=== PATIENT | male | born 1995 | race African-American/Black ===

== ENCOUNTER 2016-10-10 18:20 | Inpatient (IN) | payer OTHER, SELFPAY ==
[~2016-10-10] VITALS: Ht 177.8 cm; Wt 66.7 kg
[2016-10-10 19:03] LABS: MEAN CORPUSCULAR HEMOGLOBIN 31.3 pg (27.0-33.0); MEAN CORPUSCULAR HGB CONC 34.3 g/dl (32.0-36.5); MEAN CORPUSCULAR VOLUME 91.2 fl (80.0-96.0); WHITE BLOOD COUNT 6.9 K/mm3 (4.0-10.0)
[2016-10-10 19:18] LABS: CONTROL LINE INT CTR LINE PRESENT; METHADONE URINE NEGATIVE (NEGATIVE); TRICYCLIC ANTIDEPRESS URINE NEGATIVE (NEGATIVE)
[2016-10-10 19:27] LABS: ALBUMIN/GLOBULIN RATIO 1.11 (1.00-1.93); ALKALINE PHOSPHATASE 108 U/L (45-117); ALT/SGPT 22 U/L (12-78); ANION GAP 7 MEQ/L (8-16); AST/SGOT 11 U/L (15-37); BILIRUBIN,DIRECT 0.1 MG/DL (0.0-0.2); BILIRUBIN,TOTAL 0.4 MG/DL (0.2-1.0); BLOOD UREA NITROGEN 16 MG/DL (7-18); CARBON DIOXIDE LEVEL 28 MEQ/L (21-32); CHLORIDE LEVEL 105 MEQ/L (98-107); CREATININE FOR GFR 0.82 MG/DL (0.70-1.30); GLOMERULAR FILTRATION RATE > 60.0 (>60); GLUCOSE, FASTING 79 MG/DL (70-105); POTASSIUM SERUM 4.1 MEQ/L (3.5-5.1); SODIUM LEVEL 140 MEQ/L (136-145); TOTAL PROTEIN 7.6 GM/DL (6.4-8.2)
[2016-10-11] MEDS ORDERED: PROMSYP5 PO (13:08)
[2016-10-11] MEDS ORDERED: ALBU17IN INH (13:08)
--- NOTE | 2016-10-11 17:42 | EDDOCDS ---
Nurse's Notes [facility] Name: Sebastian Lee Age: 21 yrs Sex: Male : 1995 Arrival Date: 10/10/2016 Time: 18:20 Bed OBSERVATION Private MD: Diagnosis: Major depressive disorder, recurrent, moderate Presentation: 10/10 18:23 Presenting complaint: Patient states: pt was in the library at [facility] and made a comment mk4 about being depressed and killing himself, pt has been chaptered out of the and his recently left him , states he was going to drink alcohol and overdose, has many financial troubles , smells of alcohol today. Adult Sepsis Screening: The patient does not have new or worsening altered mentation. Patient's respiratory rate is less than 22. Systolic blood pressure is greater than 100. Patient has a qSOFA score of 0- Negative Sepsis Screen. Suicide/Homicide risk assessment- The patient admits to and/or has been reported to be having suicidal ideations. Patient denies SI and HI but presents with another emotional, behavioral or other mental health complaint. The patient reports that he/she has not been admitted to an inpatient mental health facility in the last 30 days. The patient reports that he/she has a recent or current history of substance abuse. The patient reports that he/she has no prior history of suicide attempt and/or organized plan. The patient reports that he/she has not experienced a significant life altering event in the last 30 days. The patient reports that he/she lacks adequate social support. The patient reports he/she has no significant chronic medical condition(s). Status: Patient is not a seed service advisor or dependent. Transition of care: patient was not received from another setting of care. 18:23 Acuity: COCO Level 3 4 18:23 Method Of Arrival: Police Car mk4 Triage Assessment: 18:26 General: Appears in no apparent distress. Pain: Denies pain. HIV screening NA for this mk4 visit Offered previously. Historical: - Allergies: no known allergies; - Home Meds: 1. promethazine-DM 6.25-15 mg/5 mL Oral syrp 5 mL as needed 2. albuterol sulfate 90 mcg/actuation inhalation HFAA 2 puffs as needed - PMHx: Asthma; - PSHx: none; - Social history: Smoking status: Patient uses tobacco products, light tobacco smoker. No barriers to communication noted, The patient speaks fluent Thai. - Family history: Not pertinent. - : The pt / caregiver states he / she is not on anticoagulants. Home medication list is obtained from the patient. - Exposure Risk Screening:: None identified. Screenin/28 17:36 Screening information is obtained from the patient. Fall risk: No risks identified. kcs Assistance ADL's: requires no assistance with activities of daily living. Abuse/DV Screen: The patient / caregiver reports he/she is: not in a situation that causes fear, pain or injury. Nutritional screening: No deficits noted. Advance Directives: Currently, there is no health care proxy. There is no living will. home support is adequate. Assessment: 10/10 18:29 General: Appears in no apparent distress, comfortable, Behavior is cooperative, Smells mk4 of alcohol. Respiratory: Airway is patent Respiratory effort is even, unlabored, Respiratory pattern is regular. 19:20 Reassessment: Patient appears in no apparent distress at this time. awake resting rw1 quietly on stretcher, safety maintained will monitor.. 20:23 General: Appears in no apparent distress, comfortable, Behavior is appropriate for age, rw1 cooperative, pleasant. Pain: Denies pain. Neurological: Level of Consciousness is awake, alert, obeys commands, Oriented to person, place, time. Respiratory: Airway is patent Respiratory effort is even, unlabored. Derm: Skin is normal. 21:20 Reassessment: Patient appears in no apparent distress at this time. awake resting rw1 quietly on stretcher, safety maintained will monitor.. 22:00 General: Appears in no apparent distress, comfortable. Neurological: Level of ko2 Consciousness is awake, alert. Respiratory: Airway is patent Respiratory effort is even, unlabored, Respiratory pattern is regular. Derm: Skin is normal. 22:26 Reassessment: Patient appears in no apparent distress at this time. awake resting rw1 quietly on stretcher, safety maintained will monitor.. 23:28 General: Appears in no apparent distress, comfortable, Behavior is resting quietly on rw1 stretcher, safety maintained. Respiratory: Airway is patent Respiratory effort is even, unlabored. Derm: Skin is normal. 10/11 00:20 Reassessment: Patient appears in no apparent distress at this time. resting quietly on rw1 stretcher, safety maintained will monitor.. 01:16 Reassessment: Patient appears in no apparent distress at this time. resting quietly on rw1 stretcher, safety maintained will monitor.. 01:49 General: Appears in no apparent distress, comfortable, Behavior is appropriate for age, ko2 cooperative. Pain: Denies pain. Neurological: Level of Consciousness is awake, alert. Cardiovascular: Heart tones present. Respiratory: Airway is patent Respiratory effort is even, unlabored, Respiratory pattern is regular, symmetrical, Breath sounds are clear bilaterally. GI: Abdomen is non- distended Bowel sounds present X 4 quads. Derm: Skin is normal. 02:19 Reassessment: Patient appears in no apparent distress at this time. resting quietly on rw1 stretcher, safety maintained. 03:15 Reassessment: Patient appears in no apparent distress at this time. resting quietly on rw1 stretcher, safety maintained. 04:33 General: Appears in no apparent distress, comfortable, Behavior is resting quietly on rw1 stretcher, safety maintained. Respiratory: Airway is patent Respiratory effort is even, unlabored. Derm: Skin is normal. 05:26 General: Appears in no apparent distress, comfortable, Behavior is appropriate for age, rw1 cooperative, quiet. Pain: Denies pain. Neurological: Level of Consciousness is awake, obeys commands, Oriented to person, place, time. Respiratory: Airway is patent Respiratory effort is even, unlabored. Derm: Skin is normal. 05:31 General: Appears in no apparent distress, comfortable, Behavior is quiet. Neurological: ko2 Respiratory: Airway is patent Respiratory effort is even, unlabored. Derm: Skin is normal. 06:14 Reassessment: Patient appears in no apparent distress at this time. for further rw1 documentation see [employer]. 10:11 Reassessment: patient resting on stretcher. Roused easily when I entered the room - kcs denies any needs. Has not eaten breakfast yet but states he will. Security observing.. 11:15 Reassessment: Patient has been sleeping - roused easily to voice - denies any needs. allan Wanted to talk with PSA and spoke with Madalyn Hoffman. Still has not eaten breakfast and now does not want to. Security observing.. 11:19 Reassessment: Patient to and from bathroom to void. Has been talking on phone.. kcs 13:11 Reassessment: Patient eating lunch. Has been sitting by the door (closed) reading kcs magazines but declines to have the lights turned on. Security observing.. 14:37 Reassessment: Patient resting on stretcher - lunch finished. Security observing.. kcs 16:33 Reassessment: Patient has been resting on and off - remains pleasant and cooperative. kcs Security observing.. 17:36 Reassessment: patient has remained sitting in chair - states he can't sleep anymore kcs today. Denies any needs. . General: Appears comfortable, well developed, well nourished, well groomed, Behavior is cooperative, pleasant. Pain: Denies pain. Neurological: Level of Consciousness is awake, alert. Respiratory: Airway is patent Respiratory effort is even, unlabored, Respiratory pattern is regular, symmetrical. Derm: Skin is intact, is healthy with good turgor, Skin is dry, Skin is normal. Mental Health Eval: 10/10 19:52 Mental health consult is initiated at 19:35. Status: The patient is not a ms seed service advisor or dependent. [facility] Behavioral Health: The patient is not an established patient of [facility] Behavioral Health. 19:54 Referral Information: Evaluation referral is generated by a police agency: ms 19:56 Referral Information: The patient was referred for evaluation because Pt. was a legal ms pick-up letter issued by [facility] therapist, Mirta Gonzalez. Pt. has stated he has been depressed and having SI.. 20:04 Subjective: The patients chief complaint is Pt. reports he has been feeling depressed ms and has had thoughts of killing himself. He reports that today he had thoughts of going home and taking an overdose. Pt. states he was d/c from [facility] on 06/06/2016 due to a drug charge. He also reports that his left him on Aug 14 and moved back to [place]. He does reports they are trying to work things out but the relationship is still stressed. Pt. also reports financial difficulties as a big stressor .He states he is currently attending [facility] and states his grades are starting to suffer. Pt. reports in March of last year, after an argument with his , he drank and took overdose of pills. He reports he was seen at clinic at [facility] the next day but they were unaware that he had taken intentional overdose.. Delusions are denied. Patient's mood is depressed, Hallucinations are denied. 20:53 Mental Health history: no relevant mental health problems or treatments. Mental Health ms Admissions: None. Current Outpatient Mental Health Services: None. Current living environment is The patient currently lives alone. 20:54 Patient presents to Emergency Department with the following symptoms within the past 2 ms weeks: depressed mood, marital problem, sleep disturbance - insomnia, suicidal ideation with plan for pills. Substance abuse: Patient uses marijuana one joint weekly Patient uses tobacco. Mental status exam: Patients appearance is appropriate, Patient's behavior is cooperative, Speech is normal. Affect is appropriate. Mood is depressed. Hallucinations are denied. Appetite is normal. Memory is good. Energy level is normal. Content of thought is normal. Thought process is intact. Cognitive level is oriented to person, place, time and situation Patient's insight is good. Judgement is fair. Rapport with interviewer is good. Suicidal Ideation present with a plan to kill self by pills. Homicidal ideation is denied. Disposition: Medically cleared for disposition by Scooby Rodrigues DO Psychiatric Consult is performed by phone with Dr Ed Boyd MD. [facility] Admission Criteria: The patient is experiencing suicidal ideation. The patient requires continuous observation and/or control to protect self, others or property. Legal Status: Patient's legal status will be [facility] Services admission: . [place] Safe [place]: [place] Safe Act is applicable to this patient. The patient poses a risk to self or other and the Nursing Back Roll Lathe Operator has been notified. He/She will enter the patient's data. DSM-V Differential Diagnosis: Unspecified Depressive Disorder (F32.9). Narrative:. Awaiting: referral hospital acceptance. 21:45 Narrative: No available beds currently at this facility or surrounding facilities. Bed ms search to continue in a.m. 10/11 07:26 Legal Status: Patient's legal status will be Emergency admission: 939. rb 16:31 Narrative: Pt legals placed with his belongings. rb 16:50 Awaiting: transfer to [facility]. rb Vital Signs: 10/10 18:26 BP 154 / 93; Pulse 74; Resp 18; Temp 97.2(O); Pulse Ox 96% on R/A; Weight 68.04 kg; mk4 Height 5 ft. 9 in. (175.26 cm); 20:23 BP 144 / 77; Pulse 70; Resp 16; Temp 97.9(TE); Pulse Ox 96% on R/A; Pain 0/10; rw1 10/11 05:26 BP 121 / 66; Pulse 65; Resp 18; Temp 96.8(T); Pulse Ox 96% on R/A; Pain 0/10; rw1 16:36 BP 129 / 67; Pulse 70; Resp 18; Temp 97.2(O); Pulse Ox 100% on R/A; dpm 17:36 BP 147 / 72; Pulse 62; Resp 20; Temp 98.2; Pulse Ox 99% on R/A; Pain 0/10; kcs 10/10 18:26 Body Mass Index 22.15 (68.04 kg, 175.26 cm) 4 Vitals: 10/10 18:26 Log In time N/A- police car arrival. 4 ED Course: 18:23 Patient visited by Nancy Christianson. gjb 18:23 Patient moved to Waiting gjb 18:23 Patient moved to 30 mk4 18:23 Patient moved to Waiting gjb 18:24 Patient visited by Ben Briones. rn1 18:24 Patient moved to 30 rn1 18:25 Triage Initiated mk4 18:34 Patient moved to [facility] mk4 18:35 Patient visited by Akash Nagy. dpm 18:37 Pt greeted and oriented to ED. Patient advised of names of staff involved in care, dpm location of call mancini, wait times and NPO status. Patient has correct armband on for positive identification. Placed in gown. Placed in psych safe attire. Security observing. Property removed, inventory done, secured in belongings bag- placed in locked locker. Placed in locker 2. Psych Safety Check: Location: Psych Room. Visual Assessment: Cooperative. 18:53 Patient visited by Akash Nagy. dpm 18:55 Drug Eval Toxicology ED Only Sent. mk4 18:58 Scooby Rodrigues DO is Attending Physician. cs11 18:58 Patient visited by Scooby Rodrigues DO. cs11 19:03 Patient visited by Tre Green. tr 19:03 Patient moved to OBSERVATION cs11 19:14 Patient visited by Tre Green. tr 19:18 Ben Trujillo LPN is Primary Nurse. rw1 19:29 Patient visited by Tre Green. tr 19:34 Patient visited by Tre Green. tr 20:01 Patient visited by Tre Green. tr 20:18 Patient visited by Tre Green. tr 20:32 Patient visited by Tre Green. tr 20:46 Patient visited by Tre Green. tr 21:00 Patient visited by Tre Green. tr 21:14 Patient visited by Tre Green. tr 21:26 Patient name changed from Christopher\S\\S\Lee\S\ to Christopher\S\ \S\Lee. EDMS 21:30 Patient visited by Tre Green. tr 21:32 [place] [place] Agreement was scanned into [employer] and attached to record. zo 22:00 Patient visited by Tre Green. tr 22:28 Patient visited by Tre Green. tr 22:45 Patient visited by Tre Green. tr 23:01 Patient visited by Tre Green. tr 23:17 Patient visited by Tre Green. tr 23:30 Patient visited by Tre Green. tr 23:44 Patient visited by Tre Green. tr 10/11 00:00 Patient visited by Tre Green. tr 00:18 Patient visited by Tre Green. tr 00:48 Patient visited by Tre Green. tr 01:15 Patient visited by Ben Trujillo LPN. rw1 01:30 Patient visited by Tre Green. tr 01:49 Patient visited by Tre Green. tr 01:50 Patient visited by Brooke Solomon RN. ko2 02:04 Patient visited by Tre Green. tr 02:18 Patient visited by Tre Green. tr 02:29 Patient visited by Tre Green. tr 02:44 Patient visited by Tre Green. tr 03:01 Patient visited by Tre Green. tr 03:17 Patient visited by Tre Green. tr 03:30 Patient visited by Tre Green. tr 03:47 Patient visited by Tre Green. tr 03:59 Patient visited by Tre Green. tr 04:14 Patient visited by Tre Green. tr 04:30 Patient visited by Tre Green. tr 04:44 Patient visited by Green Tre. tr 05:01 Patient visited by [facility] Tre. tr 05:14 Patient visited by [facility] Tre. tr 05:43 Patient visited by [facility] Tre. tr 05:59 Patient visited by [facility] Tre. tr 06:02 Patient visited by [facility] Tre. tr 06:17 Patient visited by [facility] Tre. tr 06:30 Patient visited by Green Tre. tr 06:44 Patient visited by Green Tre. tr 06:46 Patient visited by [facility] Tre. tr 06:50 Attending Physician role handed off by Scooby Rodrigues DO sd1 06:50 Angeles Metzger MD is Attending Physician. sd1 07:04 Patient visited by Akash Nagy. dpm 07:15 Patient visited by Akash Nagy. dpm 07:28 Patient visited by Akash Nagy. dpm 08:03 Patient visited by Akash Nagy. dpm 08:38 Patient visited by Akash Nagy. dpm 08:45 Patient visited by Akash Nagy. dpm 09:02 Patient visited by Akash Nagy. dpm 09:32 Patient visited by Akash Nagy. dpm 09:53 Patient visited by Akash Nagy. dpm 10:05 Patient visited by Akash Nagy. dpm 10:22 Patient visited by Akash Nagy. dpm 10:33 Patient visited by Akash Nagy. dpm 10:54 Patient visited by Akash Nagy. dpm 11:10 Patient visited by Akash Nagy. dpm 11:41 Patient visited by Akash Nagy. dpm 12:10 Ed Boyd MD is Hospitalizing Provider. sd1 12:15 Patient visited by Akash Nagy. dpm 12:31 Patient visited by Akash Nagy. dpm 12:56 Patient visited by Akash Nagy. dpm 13:12 Patient visited by Akash Nagy. dpm 14:08 Patient visited by Akash Nagy. dpm 14:22 Patient visited by Akash Nagy. dpm 14:29 Patient visited by Akash Nagy. dpm 15:16 Patient visited by Akash Nagy. dpm 15:25 Patient visited by Akash Nagy. dpm 15:54 Patient visited by Akash Nagy. dpm 16:32 Patient visited by Akash Nagy. dpm 16:50 [facility] Legal paperwork was scanned into [employer] and attached to record. jl 16:55 Patient visited by Akash Nagy. dpm 17:33 Patient visited by Akash Nagy. dpm 17:36 The patient / caregiver is instructed regarding the plan of care and ED course. kcs 17:36 No IV's were initiated during this patient's visit. No procedures done that require kcs assistance. Attachments: 10/11 16:50 [facility] Legal paperwork jl Order Results: Lab Order: Acetaminophen Level; SPEC'M 10/10/16 18:43 Test: ACETAMINOPHEN LEVEL; Value: < 2.0; Range: 10.0-30.0; Abnormal: Below low normal; Units: UG/ML; Status: F Lab Order: Basic Metabolic Profile; SPEC'M 10/10/16 18:43 Test: GLUCOSE, FASTING; Value: 79; Range: 70-105; Units: MG/DL; Status: F Test: BLOOD UREA NITROGEN; Value: 16; Range: 7-18; Units: MG/DL; Status: F Test: CREATININE FOR GFR; Value: 0.82; Range: 0.70-1.30; Units: MG/DL; Status: F Test: GLOMERULAR FILTRATION RATE; Value: > 60.0; Range: >60; Status: F Test: SODIUM LEVEL; Value: 140; Range: 136-145; Units: MEQ/L; Status: F Test: POTASSIUM SERUM; Value: 4.1; Range: 3.5-5.1; Units: MEQ/L; Status: F Test: CHLORIDE LEVEL; Value: 105; Range: 98-107; Units: MEQ/L; Status: F Test: CARBON DIOXIDE LEVEL; Value: 28; Range: 21-32; Units: MEQ/L; Status: F Test: ANION GAP; Value: 7; Range: 8-16; Abnormal: Below low normal; Units: MEQ/L; Status: F Test: CALCIUM LEVEL; Value: 9.0; Range: 8.5-10.1; Units: MG/DL; Status: F Test Note: ; Units are mL/min/1.73 m2 Chronic Kidney Disease Staging per NKF: Stage I & II GFR >=60 Normal to Mildly Decreased Stage III GFR 30-59 Moderately Decreased Stage IV GFR 15-29 Severely Decreased Stage V GFR <15 Very Little GFR Left ESRD GFR <15 on INTERVENTIONAL CARDIOLOGIST Lab Order: Complete Blood Count; SPEC'M 10/10/16 18:43 Test: WHITE BLOOD COUNT; Value: 6.9; Range: 4.0-10.0; Units: K/mm3; Status: F Test: RED BLOOD COUNT; Value: 4.75; Range: 4.30-6.10; Units: M/mm3; Status: F Test: HEMOGLOBIN; Value: 14.8; Range: 14.0-18.0; Units: g/dl; Status: F Test: HEMATOCRIT; Value: 43.3; Range: 42.0-52.0; Units: %; Status: F Test: MEAN CORPUSCULAR VOLUME; Value: 91.2; Range: 80.0-96.0; Units: fl; Status: F Test: MEAN CORPUSCULAR HEMOGLOBIN; Value: 31.3; Range: 27.0-33.0; Units: pg; Status: F Test: MEAN CORPUSCULAR HGB CONC; Value: 34.3; Range: 32.0-36.5; Units: g/dl; Status: F Test: RED CELL DISTRIBUTION WIDTH; Value: 12.0; Range: 11.5-14.5; Units: %; Status: F Test: PLATELET COUNT, AUTOMATED; Value: 205; Range: 150-450; Units: k/mm3; Status: F Lab Order: Drug Eval Toxicology ED Only; SPEC'M 10/10/16 18:49 Test: AMPHETAMINES LEVEL URINE; Value: NEGATIVE; Range: NEGATIVE; Status: F Test: BARBITURATES URINE; Value: NEGATIVE; Range: NEGATIVE; Status: F Test: BENZODIAZEPINES URINE; Value: NEGATIVE; Range: NEGATIVE; Status: F Test: CANNABINOIDS URINE; Value: POSITIVE; Range: NEGATIVE; Abnormal: Above high normal; Status: F Test: COCAINE METABOLITE URINE; Value: NEGATIVE; Range: NEGATIVE; Status: F Test: METHADONE URINE; Value: NEGATIVE; Range: NEGATIVE; Status: F Test: OPIATES URINE; Value: NEGATIVE; Range: NEGATIVE; Status: F Test: TRICYCLIC ANTIDEPRESS URINE; Value: NEGATIVE; Range: NEGATIVE; Status: F Test Note: ; FALSE POSITIVE RESULTS CAN BE CAUSED BY THE USE OF PANTOPRAZOLE (PROTONIX). Lab Order: Ethyl Alcohol (ethanol); SPEC'M 10/10/16 18:43 Test: ETHYL ALCOHOL (ETHANOL); Value: < 0.003; Range: 0.000-0.010; Units: %; Status: F Lab Order: Liver Profile; SPEC'M 10/10/16 18:43 Test: AST/SGOT; Value: 11; Range: 15-37; Abnormal: Below low normal; Units: U/L; Status: F Test: ALT/SGPT; Value: 22; Range: 12-78; Units: U/L; Status: F Test: ALKALINE PHOSPHATASE; Value: 108; Range: 45-117; Units: U/L; Status: F Test: BILIRUBIN,TOTAL; Value: 0.4; Range: 0.2-1.0; Units: MG/DL; Status: F Test: BILIRUBIN,DIRECT; Value: 0.1; Range: 0.0-0.2; Units: MG/DL; Status: F Test: TOTAL PROTEIN; Value: 7.6; Range: 6.4-8.2; Units: GM/DL; Status: F Test: ALBUMIN; Value: 4.0; Range: 3.2-5.2; Units: GM/DL; Status: F Test: ALBUMIN/GLOBULIN RATIO; Value: 1.11; Range: 1.00-1.93; Status: F Lab Order: Salicylate Level; SPEC'M 10/10/16 18:43 Test: SALICYLATE LEVEL; Value: 4.0; Range: 5.0-30.0; Abnormal: Below low normal; Units: MG/DL; Status: F Lab Order: Thyroid Stimulating Hormone; SPEC'M 10/10/16 18:43 Test: THYROID STIMULATING HORMONE; Value: 0.259; Range: 0.358-3.740; Abnormal: Below low normal; Units: uIU/ML; Status: F Outcome: 12:10 Decision to Hospitalize by Provider. sd1 17:36 Discharge Assessment: Patient awake, alert and oriented x 3. No cognitive and/or kcs functional deficits noted. Patient verbalized understanding of disposition instructions. Patient awake and alert. patient administered narcotics - no. The following High Risk Discharge criteria are identified: Yes, patient has been evaluated by PSA.. Admitted to Psych accompanied by tech, via wheelchair, with chart. Condition: stable. No special radiology studies were completed. Property :Personal belongings accompany Pt. 17:40 Patient left the ED. kcs Signatures: Dispatcher [employer] EDMS Angeles Metzger MD MD sd1 Jody Reeves, RN RN allan Hoffman, Madalyn, PSA PSA rb Genaro Mendoza, PSA PSA Maria Elena Busch, PSA PSA ms Norma, Ben Jones,SPORTS PSYCHOLOGIST SPORTS PSYCHOLOGIST rw1 Roshan Duenas Dustin dpScooby Ken, DO cs11 Yazmin Harrison RN RN [id number] Brooke Solomon RN RN lew2 Ben Briones rn1 Nancy Christianson Corrections: (The following items were deleted from the chart) 10/10 20:54 20:53 Mental Health history: ms ms 10/11 11:20 11:19 Reassessment: Patient to and from bathroom to void.. kcs kcs MTDD
--- NOTE | 2016-10-11 17:42 | EDDOCDS ---
Physician Documentation [facility] Name: Sebastian Lee Age: 21 yrs Sex: Male : 1995 Arrival Date: 10/10/2016 Time: 18:20 Bed OBSERVATION Private MD: Disposition: 10/11 06:50 Due to EMR change management lead to [employer], the medical record for this patient will completed sd1 in [facility]. Disposition: 10/11/16 12:10 Hospitalization ordered by Ed Boyd for Inpatient Admission. Preliminary diagnosis is Major depressive disorder, recurrent, moderate. - Bed requested for Admit. - Status is Inpatient Admission. kcs - Condition is Stable. - Problem is new. - Symptoms are unchanged. Historical: - Allergies: no known allergies; - Home Meds: 1. promethazine-DM 6.25-15 mg/5 mL Oral syrp 5 mL as needed 2. albuterol sulfate 90 mcg/actuation inhalation HFAA 2 puffs as needed - PMHx: Asthma; - PSHx: none; - Social history: Smoking status: Patient uses tobacco products, light tobacco smoker. No barriers to communication noted, The patient speaks fluent [place]. - Family history: Not pertinent. - : The pt / caregiver states he / she is not on anticoagulants. Home medication list is obtained from the patient. - Exposure Risk Screening:: None identified. Vital Signs: 10/10 18:26 BP 154 / 93; Pulse 74; Resp 18; Temp 97.2(O); Pulse Ox 96% on R/A; Weight 68.04 kg / mk4 150 lbs; Height 5 ft. 9 in. (175.26 cm); 20:23 BP 144 / 77; Pulse 70; Resp 16; Temp 97.9(TE); Pulse Ox 96% on R/A; Pain 0/10; rw1 10/11 05:26 BP 121 / 66; Pulse 65; Resp 18; Temp 96.8(T); Pulse Ox 96% on R/A; Pain 0/10; rw1 16:36 BP 129 / 67; Pulse 70; Resp 18; Temp 97.2(O); Pulse Ox 100% on R/A; dpm 17:36 BP 147 / 72; Pulse 62; Resp 20; Temp 98.2; Pulse Ox 99% on R/A; Pain 0/10; kcs 10/10 18:26 Body Mass Index 22.15 (68.04 kg, 175.26 cm) mk4 MDM: 10/10 18:39 Consult PFS/PSA/Sheet [place] Taper Helper ordered. br1 18:39 Consult PFS/PSA/Sheet [place] Taper Helper: Patient's case requires discussion with on-call br1 Psychiatrist ordered. 18:39 PSA/PFS to call Nursing Office Services Specialist, to enter patient data on [place] Safe [place] if patient br1 involuntarily admitted or transferred for SI or HI ordered. 18:39 Confirm accurate psychiatric medication list and times of last dosage ordered. br1 18:39 Detain Pt Until Medically/PFS Cleared ordered. br1 18:40 Acetaminophen Level Ordered. EDMS 18:40 Basic Metabolic Profile Ordered. EDMS 18:40 Complete Blood Count Ordered. EDMS 18:40 Drug Eval Toxicology ED Only Ordered. EDMS 18:40 Ethyl Alcohol (ethanol) Ordered. EDMS 18:40 Liver Profile Ordered. EDMS 18:40 Salicylate Level Ordered. EDMS 18:40 Thyroid Stimulating Hormone Ordered. EDMS 18:40 Consult PFS/PSA/[place] Taper Helper complete. mk4 18:55 Consult PFS/PSA/[place] Taper Helper: Patient's case requires discussion with on-call 4 Psychiatrist complete. 18:55 PSA/PFS to call Nursing Office Services Specialist, to enter patient data [place] Safe [place] if patient mk4 involuntarily admitted or transferred for SI or HI complete. 19:17 Financial registration complete. zo 19:41 Acetaminophen Level Reviewed. cs11 19:41 Basic Metabolic Profile Reviewed. cs11 19:41 Drug Eval Toxicology ED Only Reviewed. cs11 19:41 Liver Profile Reviewed. cs11 19:41 Salicylate Level Reviewed. cs11 19:41 Thyroid Stimulating Hormone Reviewed. cs11 19:41 Complete Blood Count Reviewed. cs11 19:41 Ethyl Alcohol (ethanol) Reviewed. cs11 19:43 Consult PFS/PSA/Socail Worker: Cleared medically for eval ordered. cs11 19:51 Consult PFS/PSA/Socail Worker: Cleared medically for eval complete. ms 21:32 [facility] [place] Agreement was scanned into [employer] and attached to record. zo 10/11 04:35 REGULAR DIET PLASTIC STANLEY+DIET ordered. EDMS 11:46 REGULAR DIET PLASTIC STANLEY+DIET ordered. EDMS 16:35 REGULAR DIET PLASTIC STANLEY+DIET ordered. EDMS 16:49 Admit to [facility]: ordered. EDMS 16:50 MHE Legal paperwork was scanned into [employer] and attached to record. jl Signatures: Dispatcher [employer] EDMS Angeles Metzger MD MD sd1 Jody Reeves, RN RN kcs Kelly, Genaro, PSA PSA jl Stone, Maria Elena, PSA PSA ms SydneeBen lucero,CAKE WINDER CAKE WINDER rw1 Roshan Duenas Brian, MD MD br1 Scooby Rodrigues, DO cs11 Yazmin Harrison RN RN mk4 The chart was reviewed and I authenticate all verbal orders and agree with the evaluation and treatment provided.Attachments: 10/10 21:32 [facility] [place] Agreement zo MTDD
[2016-10-11 17:48] VITALS: BP 135/86
[2016-10-11] MEDS ORDERED: traZODone 50 MG TAB PO PRN (19:00)
[2016-10-11] MEDS ORDERED: MOM 30ML SUSPENSION UDC PO PRN (19:00)
[2016-10-11] MEDS ORDERED: LORazepam 1 MG TAB PO PRN (19:00)
[2016-10-11] MEDS ORDERED: ACETAMINOPHEN TAB 650MG DOSE (2X325MG) PO PRN (19:00)
[2016-10-11] MEDS ORDERED: MAALOX 30 ML SUSP *UDC PO PRN (19:00)
[2016-10-11] MEDS ORDERED: ALBUTEROL 90 MCG/ACT 8GM HFA INHALER INH PRN (19:00)
[2016-10-12 06:41] VITALS: BP 100/53
--- NOTE | 2016-10-12 09:59 | HPEPDOC ---
Medical History and Physical Date of Admission Oct 11, 2016 at 16:44 History and Physical PCP: None ATTENDING: Dr. Carlo Webster HPI: 21 yo M admitted to [facility] for MDD, being medically examined today. No acute medical complaints today. Denies any fevers, chills, weakness, fatigue, NICHOLE, CP, SOB, cough, palpitations, abdominal pain, N/V/D or changes in bowel or bladder habits. 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 ROS: As noted in HPI, otherwise 11pt ROS of systems reviewed and unremarkable PE: GEN: 21 yo M, appears stated age. Well-nourished, well developed. No acute distress. Alert and oriented x 3. Pleasant, interactive. HEENT: Normocephalic, atraumatic. Pupils are equal, round, and reactive to light. Extraocular movements are intact. No nystagmus appreciated. Sclera are nonicteric. Conjunctiva without injection. Nose midline. Nasal turbinates without bogginess. EACs both patent BL. TMs both visualized and [place] with good cone of light, no bulging or erythema. No facial asymmetry. Moist mucous membranes. Dentition fair. Pharynx pink and moist, no cobblestoning. Neck supple , trachea midline. No lymphadenopathy or thyromegaly appreciated. CHEST: Regular rate and rhythm, +S1, +S2 LUNGS: Clear to auscultation bilaterally. No wheezes, rales, or rhonchi. Breathing appears symmetric and easy. Patient is speaking in full sentences. No accessory muscle use. ABD: Round, soft, non-tender, non-distended. +Bowel sounds throughout. No rebound or guarding. No costovertebral angle tenderness. EXT: Pulses 2+ bilaterally dorsalis pedis and radial. No lower extremity edema appreciated. SKIN: [place], dry, warm. Capillary refill <2sec. No rashes. NEURO: Alert and oriented x 3. Cranial nerves III-XII are intact. No focal deficits appreciated. EKG: Pending. A&P: 21 yo M admitted to [facility] for MDD 1. Psych. Plan per Psychiatry. Obtain baseline EKG to assure the safety of psychiatric medications as they can prolong the QT interval. 2. Nicotine dependence. Patch available. 3. Asthma. Albuterol HFA 2 puffs every 4 hours as needed. 4. Follow up with PCP on discharge. 5. Abnormal TSH. Recheck TSH and free T4 in a.m. 6. Cannabinoid use. Per psychiatry. 7. Staff member present throughout exam, beka Renner. Vital Signs Vital Signs Label Value Date Time Patient Temperature 96.8 degrees F 10/12/16 0641 Temperature Source Tympanic 10/12/16 0641 Pulse 78 10/12/16 0641 Respiratory Rate 16 bpm 10/12/16 0641 Blood Pressure Assessment 100/53 (69) 10/12/16 0641 Laboratory Data Labs 24H Item Value Date Time White Blood Count 6.9 K/mm3 10/10/161842 Red Blood Count 4.75 M/mm3 10/10/16 184 Hemoglobin 14.8 g/dl 10/10/16 184 Hematocrit 43.3 % 10/10/161842 Mean Corpuscular Volume 91.2 fl 10/10/16 184 Mean Corpuscular Hemoglobin 31.3 pg 10/10/161842 Mean Corpuscular Hemoglobin Concent 34.3 g/dl 10/10/161842 Red Cell Distribution Width 12.0 % 10/10/161842 Platelet Count 205 k/mm3 10/10/16 184 Sodium Level 140 MEQ/L 10/10/16 184 Potassium Level 4.1 MEQ/L 10/10/16 184 Chloride Level 105 MEQ/L 10/10/16 184 Carbon Dioxide Level 28 MEQ/L 10/10/16 184 Anion Gap 7 MEQ/L L 10/10/161842 Blood Urea Nitrogen 16 MG/DL 10/10/16 184 Creatinine 0.82 MG/DL 10/10/16 184 Glomerular Filtration Rate > 60.0 10/10/161842 Fasting Glucose 79 MG/DL 10/10/16 1843 Calcium Level 9.0 MG/DL 10/10/16 1843 Total Bilirubin 0.4 MG/DL 10/10/16 1843 Direct Bilirubin 0.1 MG/DL 10/10/16 1843 Aspartate Amino Transf (AST/SGOT) 11 U/L L 10/10/16 1843 Alkaline Phosphatase 108 U/L 10/10/16 1843 Alanine Aminotransferase (ALT/SGPT) 22 U/L 10/10/16 1843 Total Protein 7.6 GM/DL 10/10/16 1843 Albumin 4.0 GM/DL 10/10/16 1843 Albumin/Globulin Ratio 1.11 10/10/16 184 Thyroid Stimulating Hormone (TSH) 0.259 uIU/ML L 10/10/16 184 Salicylates Level 4.0 MG/DL L 10/10/16 184 Urine Opiates Screen NEGATIVE 10/10/16 184 Urine Methadone Screen NEGATIVE 10/10/16 184 Acetaminophen Level < 2.0 UG/ML L 10/10/16 184 Urine Barbiturates Screen NEGATIVE 10/10/16 184 Urine Tricyclic Antidepressants NEGATIVE 10/10/16 1849 Urine Amphetamines Screen NEGATIVE 10/10/16 1849 Urine Benzodiazepines Screen NEGATIVE 10/10/16 184 Urine Cocaine Metabolite Screen NEGATIVE 10/10/16 1849 Urine Cannabinoids Screen POSITIVE H 10/10/16 184 Ethyl Alcohol Level < 0.003 % 10/10/16 184 Home Medications Scheduled PRN (Promethazine-Dm 6.25-15 mg/5Ml) 1 Syp Syp 1 SYP PO PRN PRN PRN NAUSEA OR VOMITING Albuterol Sulfate (Ventolin Hfa) 200 Puff/8 Gm Aers 2 PUFF INH QID PRN PRN SHORTNESS OF BREATH Allergies Coded Allergies: No Known Allergies (Unverified , 10/11/16) Giselle Mera Oct 12, 2016 09:59
[2016-10-12] MEDS ORDERED: NICOTINE 7 MG/24 HR TRANSDERMAL TD ONE (10:15)
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
[2016-10-12 18:00] VITALS: BP 141/86
[2016-10-13 06:30] VITALS: BP 125/82
[2016-10-13 07:45] LABS: FREE T4 1.04 NG/DL (0.76-1.46)
[2016-10-13] MEDS: NICOTINE 7 MG/24 HR TRANSDERMAL TD SCH (09:33)
[2016-10-13] MEDS ORDERED: ALBUTEROL 90 MCG/ACT 8GM HFA INHALER INH PRN (11:15)
--- NOTE | 2016-10-13 12:52 | ECGEPIP ---
Stationary ECG Study [facility] Test Date: 2016-10-13 Pat Name: SHERI CHAIDEZ Department: Room: [place] [address] Gender: M Medical Artist: MICHAEL : 1995 Requested By: Giselle Mera Order Number: [id number] Reading MD: Carlo Webster Measurements Intervals [place] Rate: 59 P: 65 UT: 139 QRS: 77 QRSD: 97 T: 64 QT: 420 QTc: 418 Interpretive Statements SINUS BRADYCARDIA Comparison tracing not on file Electronically Signed On 10-13-2016 12:52:00 EST by Carlo Webster
[2016-10-13 18:00] VITALS: BP 135/60
--- NOTE | 2016-10-13 18:43 | EDDOCDS ---
Nurse's Notes [facility] Name: Sebastian Lee Age: 21 yrs Sex: Male : 1995 Arrival Date: 10/10/2016 Time: 18:20 Bed OBSERVATION Private MD: Diagnosis: Major depressive disorder, recurrent, moderate Presentation: 10/10 18:23 Presenting complaint: Patient states: pt was in the library at [facility] and made a comment mk4 about being depressed and killing himself, pt has been chaptered out of the and his recently left him , states he was going to drink alcohol and overdose, has many financial troubles , smells of alcohol today. Adult Sepsis Screening: The patient does not have new or worsening altered mentation. Patient's respiratory rate is less than 22. Systolic blood pressure is greater than 100. Patient has a qSOFA score of 0- Negative Sepsis Screen. Suicide/Homicide risk assessment- The patient admits to and/or has been reported to be having suicidal ideations. Patient denies SI and HI but presents with another emotional, behavioral or other mental health complaint. The patient reports that he/she has not been admitted to an inpatient mental health facility in the last 30 days. The patient reports that he/she has a recent or current history of substance abuse. The patient reports that he/she has no prior history of suicide attempt and/or organized plan. The patient reports that he/she has not experienced a significant life altering event in the last 30 days. The patient reports that he/she lacks adequate social support. The patient reports he/she has no significant chronic medical condition(s). Status: Patient is not a agency service coordinator or dependent. Transition of care: patient was not received from another setting of care. 18:23 Acuity: COCO Level 3 4 18:23 Method Of Arrival: Police Car mk4 Triage Assessment: 18:26 General: Appears in no apparent distress. Pain: Denies pain. HIV screening NA for this mk4 visit Offered previously. Historical: - Allergies: no known allergies; - Home Meds: 1. promethazine-DM 6.25-15 mg/5 mL Oral syrp 5 mL as needed 2. albuterol sulfate 90 mcg/actuation inhalation HFAA 2 puffs as needed - PMHx: Asthma; - PSHx: none; - Social history: Smoking status: Patient uses tobacco products, light tobacco smoker. No barriers to communication noted, The patient speaks fluent Slovenian. - Family history: Not pertinent. - : The pt / caregiver states he / she is not on anticoagulants. Home medication list is obtained from the patient. - Exposure Risk Screening:: None identified. Screenin/28 17:36 Screening information is obtained from the patient. Fall risk: No risks identified. kcs Assistance ADL's: requires no assistance with activities of daily living. Abuse/DV Screen: The patient / caregiver reports he/she is: not in a situation that causes fear, pain or injury. Nutritional screening: No deficits noted. Advance Directives: Currently, there is no health care proxy. There is no living will. home support is adequate. Assessment: 10/10 18:29 General: Appears in no apparent distress, comfortable, Behavior is cooperative, Smells mk4 of alcohol. Respiratory: Airway is patent Respiratory effort is even, unlabored, Respiratory pattern is regular. 19:20 Reassessment: Patient appears in no apparent distress at this time. awake resting rw1 quietly on stretcher, safety maintained will monitor.. 20:23 General: Appears in no apparent distress, comfortable, Behavior is appropriate for age, rw1 cooperative, pleasant. Pain: Denies pain. Neurological: Level of Consciousness is awake, alert, obeys commands, Oriented to person, place, time. Respiratory: Airway is patent Respiratory effort is even, unlabored. Derm: Skin is normal. 21:20 Reassessment: Patient appears in no apparent distress at this time. awake resting rw1 quietly on stretcher, safety maintained will monitor.. 22:00 General: Appears in no apparent distress, comfortable. Neurological: Level of ko2 Consciousness is awake, alert. Respiratory: Airway is patent Respiratory effort is even, unlabored, Respiratory pattern is regular. Derm: Skin is normal. 22:26 Reassessment: Patient appears in no apparent distress at this time. awake resting rw1 quietly on stretcher, safety maintained will monitor.. 23:28 General: Appears in no apparent distress, comfortable, Behavior is resting quietly on rw1 stretcher, safety maintained. Respiratory: Airway is patent Respiratory effort is even, unlabored. Derm: Skin is normal. 10/11 00:20 Reassessment: Patient appears in no apparent distress at this time. resting quietly on rw1 stretcher, safety maintained will monitor.. 01:16 Reassessment: Patient appears in no apparent distress at this time. resting quietly on rw1 stretcher, safety maintained will monitor.. 01:49 General: Appears in no apparent distress, comfortable, Behavior is appropriate for age, ko2 cooperative. Pain: Denies pain. Neurological: Level of Consciousness is awake, alert. Cardiovascular: Heart tones present. Respiratory: Airway is patent Respiratory effort is even, unlabored, Respiratory pattern is regular, symmetrical, Breath sounds are clear bilaterally. GI: Abdomen is non- distended Bowel sounds present X 4 quads. Derm: Skin is normal. 02:19 Reassessment: Patient appears in no apparent distress at this time. resting quietly on rw1 stretcher, safety maintained. 03:15 Reassessment: Patient appears in no apparent distress at this time. resting quietly on rw1 stretcher, safety maintained. 04:33 General: Appears in no apparent distress, comfortable, Behavior is resting quietly on rw1 stretcher, safety maintained. Respiratory: Airway is patent Respiratory effort is even, unlabored. Derm: Skin is normal. 05:26 General: Appears in no apparent distress, comfortable, Behavior is appropriate for age, rw1 cooperative, quiet. Pain: Denies pain. Neurological: Level of Consciousness is awake, obeys commands, Oriented to person, place, time. Respiratory: Airway is patent Respiratory effort is even, unlabored. Derm: Skin is normal. 05:31 General: Appears in no apparent distress, comfortable, Behavior is quiet. Neurological: ko2 Respiratory: Airway is patent Respiratory effort is even, unlabored. Derm: Skin is normal. 06:14 Reassessment: Patient appears in no apparent distress at this time. for further rw1 documentation see [employer]. 10:11 Reassessment: patient resting on stretcher. Roused easily when I entered the room - kcs denies any needs. Has not eaten breakfast yet but states he will. Security observing.. 11:15 Reassessment: Patient has been sleeping - roused easily to voice - denies any needs. allan Wanted to talk with PSA and spoke with Madalyn Hoffman. Still has not eaten breakfast and now does not want to. Security observing.. 11:19 Reassessment: Patient to and from bathroom to void. Has been talking on phone.. kcs 13:11 Reassessment: Patient eating lunch. Has been sitting by the door (closed) reading kcs magazines but declines to have the lights turned on. Security observing.. 14:37 Reassessment: Patient resting on stretcher - lunch finished. Security observing.. kcs 16:33 Reassessment: Patient has been resting on and off - remains pleasant and cooperative. kcs Security observing.. 17:36 Reassessment: patient has remained sitting in chair - states he can't sleep anymore kcs today. Denies any needs. . General: Appears comfortable, well developed, well nourished, well groomed, Behavior is cooperative, pleasant. Pain: Denies pain. Neurological: Level of Consciousness is awake, alert. Respiratory: Airway is patent Respiratory effort is even, unlabored, Respiratory pattern is regular, symmetrical. Derm: Skin is intact, is healthy with good turgor, Skin is dry, Skin is normal. Mental Health Eval: 10/10 19:52 Mental health consult is initiated at 19:35. Status: The patient is not a ms agency service coordinator or dependent. [facility] Behavioral Health: The patient is not an established patient of [facility] Behavioral Health. 19:54 Referral Information: Evaluation referral is generated by a police agency: ms 19:56 Referral Information: The patient was referred for evaluation because Pt. was a legal ms pick-up letter issued by [facility] therapist, Mirta Gonzalez. Pt. has stated he has been depressed and having SI.. 20:04 Subjective: The patients chief complaint is Pt. reports he has been feeling depressed ms and has had thoughts of killing himself. He reports that today he had thoughts of going home and taking an overdose. Pt. states he was d/c from [facility] on 06/06/2016 due to a drug charge. He also reports that his left him on Aug 14 and moved back to [place]. He does reports they are trying to work things out but the relationship is still stressed. Pt. also reports financial difficulties as a big stressor .He states he is currently attending [facility] and states his grades are starting to suffer. Pt. reports in March of last year, after an argument with his , he drank and took overdose of pills. He reports he was seen at clinic at [facility] the next day but they were unaware that he had taken intentional overdose.. Delusions are denied. Patient's mood is depressed, Hallucinations are denied. 20:53 Mental Health history: no relevant mental health problems or treatments. Mental Health ms Admissions: None. Current Outpatient Mental Health Services: None. Current living environment is The patient currently lives alone. 20:54 Patient presents to Emergency Department with the following symptoms within the past 2 ms weeks: depressed mood, marital problem, sleep disturbance - insomnia, suicidal ideation with plan for pills. Substance abuse: Patient uses marijuana one joint weekly Patient uses tobacco. Mental status exam: Patients appearance is appropriate, Patient's behavior is cooperative, Speech is normal. Affect is appropriate. Mood is depressed. Hallucinations are denied. Appetite is normal. Memory is good. Energy level is normal. Content of thought is normal. Thought process is intact. Cognitive level is oriented to person, place, time and situation Patient's insight is good. Judgement is fair. Rapport with interviewer is good. Suicidal Ideation present with a plan to kill self by pills. Homicidal ideation is denied. Disposition: Medically cleared for disposition by Scooby Rodrigues DO Psychiatric Consult is performed by phone with Dr Ed Boyd MD. [facility] Admission Criteria: The patient is experiencing suicidal ideation. The patient requires continuous observation and/or control to protect self, others or property. Legal Status: Patient's legal status will be [facility] admission: . [place] Safe Act: [place] Safe Act is applicable to this patient. The patient poses a risk to self or other and the Nursing Wood Heel Finisher has been notified. He/She will enter the patient's data. DSM-V Differential Diagnosis: Unspecified Depressive Disorder (F32.9). Narrative:. Awaiting: referral hospital acceptance. 21:45 Narrative: No available beds currently at this facility or surrounding facilities. Bed ms search to continue in a.m. 10/11 07:26 Legal Status: Patient's legal status will be Emergency admission: 939. rb 16:31 Narrative: Pt legals placed with his belongings. rb 16:50 Awaiting: transfer to [facility]. rb Vital Signs: 10/10 18:26 BP 154 / 93; Pulse 74; Resp 18; Temp 97.2(O); Pulse Ox 96% on R/A; Weight 68.04 kg; mk4 Height 5 ft. 9 in. (175.26 cm); 20:23 BP 144 / 77; Pulse 70; Resp 16; Temp 97.9(TE); Pulse Ox 96% on R/A; Pain 0/10; rw1 10/11 05:26 BP 121 / 66; Pulse 65; Resp 18; Temp 96.8(T); Pulse Ox 96% on R/A; Pain 0/10; rw1 16:36 BP 129 / 67; Pulse 70; Resp 18; Temp 97.2(O); Pulse Ox 100% on R/A; dpm 17:36 BP 147 / 72; Pulse 62; Resp 20; Temp 98.2; Pulse Ox 99% on R/A; Pain 0/10; kcs 10/10 18:26 Body Mass Index 22.15 (68.04 kg, 175.26 cm) 4 Vitals: 10/10 18:26 Log In time N/A- police car arrival. 4 ED Course: 18:23 Patient visited by Nancy Christianson. gjb 18:23 Patient moved to Waiting gjb 18:23 Patient moved to 30 mk4 18:23 Patient moved to Waiting gjb 18:24 Patient visited by Ben Briones. rn1 18:24 Patient moved to 30 rn1 18:25 Triage Initiated mk4 18:34 Patient moved to [facility] mk4 18:35 Patient visited by Akash Nagy. dpm 18:37 Pt greeted and oriented to ED. Patient advised of names of staff involved in care, dpm location of call mancini, wait times and NPO status. Patient has correct armband on for positive identification. Placed in gown. Placed in psych safe attire. Security observing. Property removed, inventory done, secured in belongings bag- placed in locked locker. Placed in locker 2. Psych Safety Check: Location: Psych Room. Visual Assessment: Cooperative. 18:53 Patient visited by Akash Nagy. dpm 18:55 Drug Eval Toxicology ED Only Sent. mk4 18:58 Scooby Rodrigues DO is Attending Physician. cs11 18:58 Patient visited by Scooby Rodrigues DO. cs11 19:03 Patient visited by Tre Green. tr 19:03 Patient moved to OBSERVATION cs11 19:14 Patient visited by Tre Green. tr 19:18 Ben Trujillo LPN is Primary Nurse. rw1 19:29 Patient visited by Tre Green. tr 19:34 Patient visited by Tre Green. tr 20:01 Patient visited by Tre Green. tr 20:18 Patient visited by Tre Green. tr 20:32 Patient visited by Tre Green. tr 20:46 Patient visited by Tre Green. tr 21:00 Patient visited by Tre Green. tr 21:14 Patient visited by Tre Green. tr 21:26 Patient name changed from Christopher\S\\S\Lee\S\ to Christopher\S\ \S\Lee. EDMS 21:30 Patient visited by Tre Green. tr 21:32 [facility] Payment Agreement was scanned into [employer] and attached to record. zo 22:00 Patient visited by Tre Green. tr 22:28 Patient visited by Tre Green. tr 22:45 Patient visited by Tre Green. tr 23:01 Patient visited by Tre Green. tr 23:17 Patient visited by Tre Green. tr 23:30 Patient visited by Tre Green. tr 23:44 Patient visited by Tre Green. tr 10/11 00:00 Patient visited by Tre Green. tr 00:18 Patient visited by Tre Green. tr 00:48 Patient visited by Tre Green. tr 01:15 Patient visited by Ben Trujillo LPN. rw1 01:30 Patient visited by Tre Green. tr 01:49 Patient visited by Tre Green. tr 01:50 Patient visited by Brooke Solomon RN. ko2 02:04 Patient visited by Tre Green. tr 02:18 Patient visited by Tre Green. tr 02:29 Patient visited by Tre Green. tr 02:44 Patient visited by Tre Green. tr 03:01 Patient visited by Tre Green. tr 03:17 Patient visited by Tre Green. tr 03:30 Patient visited by Tre Green. tr 03:47 Patient visited by Tre Green. tr 03:59 Patient visited by Tre Green. tr 04:14 Patient visited by Tre Green. tr 04:30 Patient visited by Tre Green. tr 04:44 Patient visited by Green Tre. tr 05:01 Patient visited by [facility] Tre. tr 05:14 Patient visited by [facility] Tre. tr 05:43 Patient visited by [facility] Tre. tr 05:59 Patient visited by [facility] Tre. tr 06:02 Patient visited by [facility] Tre. tr 06:17 Patient visited by [facility] Tre. tr 06:30 Patient visited by Green Tre. tr 06:44 Patient visited by Green Tre. tr 06:46 Patient visited by [facility] Tre. tr 06:50 Attending Physician role handed off by Scooby Rodrigues DO sd1 06:50 Angeles Metzger MD is Attending Physician. sd1 07:04 Patient visited by Akash Nagy. dpm 07:15 Patient visited by Akash Nagy. dpm 07:28 Patient visited by Akash Nagy. dpm 08:03 Patient visited by Akash Nagy. dpm 08:38 Patient visited by Akash Nagy. dpm 08:45 Patient visited by Akash Nagy. dpm 09:02 Patient visited by Akash Nagy. dpm 09:32 Patient visited by Akash Nagy. dpm 09:53 Patient visited by Akash Nagy. dpm 10:05 Patient visited by Akash Nagy. dpm 10:22 Patient visited by Akash Nagy. dpm 10:33 Patient visited by Akash Nagy. dpm 10:54 Patient visited by Akash Nagy. dpm 11:10 Patient visited by Akash Nagy. dpm 11:41 Patient visited by Akash Nagy. dpm 12:10 Ed Boyd MD is Hospitalizing Provider. sd1 12:15 Patient visited by Akash Nagy. dpm 12:31 Patient visited by Akash Nagy. dpm 12:56 Patient visited by Akash Nagy. dpm 13:12 Patient visited by Akash Nagy. dpm 14:08 Patient visited by Akash Nagy. dpm 14:22 Patient visited by Akash Nagy. dpm 14:29 Patient visited by Akash Nagy. dpm 15:16 Patient visited by Akash Nagy. dpm 15:25 Patient visited by Akash Nagy. dpm 15:54 Patient visited by Akash Nagy. dpm 16:32 Patient visited by Akash Nagy. dpm 16:50 [facility] Legal paperwork was scanned into [employer] and attached to record. jl 16:55 Patient visited by Akash Nagy. dpm 17:33 Patient visited by Akash Nagy. dpm 17:36 The patient / caregiver is instructed regarding the plan of care and ED course. kcs 17:36 No IV's were initiated during this patient's visit. No procedures done that require kcs assistance. Attachments: 10/11 16:50 [facility] Legal paperwork jl Order Results: Lab Order: Acetaminophen Level; SPEC'M 10/10/16 18:43 Test: ACETAMINOPHEN LEVEL; Value: < 2.0; Range: 10.0-30.0; Abnormal: Below low normal; Units: UG/ML; Status: F Lab Order: Basic Metabolic Profile; SPEC'M 10/10/16 18:43 Test: GLUCOSE, FASTING; Value: 79; Range: 70-105; Units: MG/DL; Status: F Test: BLOOD UREA NITROGEN; Value: 16; Range: 7-18; Units: MG/DL; Status: F Test: CREATININE FOR GFR; Value: 0.82; Range: 0.70-1.30; Units: MG/DL; Status: F Test: GLOMERULAR FILTRATION RATE; Value: > 60.0; Range: >60; Status: F Test: SODIUM LEVEL; Value: 140; Range: 136-145; Units: MEQ/L; Status: F Test: POTASSIUM SERUM; Value: 4.1; Range: 3.5-5.1; Units: MEQ/L; Status: F Test: CHLORIDE LEVEL; Value: 105; Range: 98-107; Units: MEQ/L; Status: F Test: CARBON DIOXIDE LEVEL; Value: 28; Range: 21-32; Units: MEQ/L; Status: F Test: ANION GAP; Value: 7; Range: 8-16; Abnormal: Below low normal; Units: MEQ/L; Status: F Test: CALCIUM LEVEL; Value: 9.0; Range: 8.5-10.1; Units: MG/DL; Status: F Test Note: ; Units are mL/min/1.73 m2 Chronic Kidney Disease Staging per NKF: Stage I & II GFR >=60 Normal to Mildly Decreased Stage III GFR 30-59 Moderately Decreased Stage IV GFR 15-29 Severely Decreased Stage V GFR <15 Very Little GFR Left ESRD GFR <15 on RIGGING UP WORKER Lab Order: Complete Blood Count; SPEC'M 10/10/16 18:43 Test: WHITE BLOOD COUNT; Value: 6.9; Range: 4.0-10.0; Units: K/mm3; Status: F Test: RED BLOOD COUNT; Value: 4.75; Range: 4.30-6.10; Units: M/mm3; Status: F Test: HEMOGLOBIN; Value: 14.8; Range: 14.0-18.0; Units: g/dl; Status: F Test: HEMATOCRIT; Value: 43.3; Range: 42.0-52.0; Units: %; Status: F Test: MEAN CORPUSCULAR VOLUME; Value: 91.2; Range: 80.0-96.0; Units: fl; Status: F Test: MEAN CORPUSCULAR HEMOGLOBIN; Value: 31.3; Range: 27.0-33.0; Units: pg; Status: F Test: MEAN CORPUSCULAR HGB CONC; Value: 34.3; Range: 32.0-36.5; Units: g/dl; Status: F Test: RED CELL DISTRIBUTION WIDTH; Value: 12.0; Range: 11.5-14.5; Units: %; Status: F Test: PLATELET COUNT, AUTOMATED; Value: 205; Range: 150-450; Units: k/mm3; Status: F Lab Order: Drug Eval Toxicology ED Only; SPEC'M 10/10/16 18:49 Test: AMPHETAMINES LEVEL URINE; Value: NEGATIVE; Range: NEGATIVE; Status: F Test: BARBITURATES URINE; Value: NEGATIVE; Range: NEGATIVE; Status: F Test: BENZODIAZEPINES URINE; Value: NEGATIVE; Range: NEGATIVE; Status: F Test: CANNABINOIDS URINE; Value: POSITIVE; Range: NEGATIVE; Abnormal: Above high normal; Status: F Test: COCAINE METABOLITE URINE; Value: NEGATIVE; Range: NEGATIVE; Status: F Test: METHADONE URINE; Value: NEGATIVE; Range: NEGATIVE; Status: F Test: OPIATES URINE; Value: NEGATIVE; Range: NEGATIVE; Status: F Test: TRICYCLIC ANTIDEPRESS URINE; Value: NEGATIVE; Range: NEGATIVE; Status: F Test Note: ; FALSE POSITIVE RESULTS CAN BE CAUSED BY THE USE OF PANTOPRAZOLE (PROTONIX). Lab Order: Ethyl Alcohol (ethanol); SPEC'M 10/10/16 18:43 Test: ETHYL ALCOHOL (ETHANOL); Value: < 0.003; Range: 0.000-0.010; Units: %; Status: F Lab Order: Liver Profile; SPEC'M 10/10/16 18:43 Test: AST/SGOT; Value: 11; Range: 15-37; Abnormal: Below low normal; Units: U/L; Status: F Test: ALT/SGPT; Value: 22; Range: 12-78; Units: U/L; Status: F Test: ALKALINE PHOSPHATASE; Value: 108; Range: 45-117; Units: U/L; Status: F Test: BILIRUBIN,TOTAL; Value: 0.4; Range: 0.2-1.0; Units: MG/DL; Status: F Test: BILIRUBIN,DIRECT; Value: 0.1; Range: 0.0-0.2; Units: MG/DL; Status: F Test: TOTAL PROTEIN; Value: 7.6; Range: 6.4-8.2; Units: GM/DL; Status: F Test: ALBUMIN; Value: 4.0; Range: 3.2-5.2; Units: GM/DL; Status: F Test: ALBUMIN/GLOBULIN RATIO; Value: 1.11; Range: 1.00-1.93; Status: F Lab Order: Salicylate Level; SPEC'M 10/10/16 18:43 Test: SALICYLATE LEVEL; Value: 4.0; Range: 5.0-30.0; Abnormal: Below low normal; Units: MG/DL; Status: F Lab Order: Thyroid Stimulating Hormone; SPEC'M 10/10/16 18:43 Test: THYROID STIMULATING HORMONE; Value: 0.259; Range: 0.358-3.740; Abnormal: Below low normal; Units: uIU/ML; Status: F Outcome: 12:10 Decision to Hospitalize by Provider. sd1 17:36 Discharge Assessment: Patient awake, alert and oriented x 3. No cognitive and/or kcs functional deficits noted. Patient verbalized understanding of disposition instructions. Patient awake and alert. patient administered narcotics - no. The following High Risk Discharge criteria are identified: Yes, patient has been evaluated by PSA.. Admitted to Psych accompanied by tech, via wheelchair, with chart. Condition: stable. No special radiology studies were completed. Property :Personal belongings accompany Pt. 17:40 Patient left the ED. kcs Signatures: Dispatcher [employer] EDMS Angeles Metzger MD MD sd1 Jody Reeves, RN RN allan Hoffman, Madalyn, PSA PSA rb Genaro Mendoza, PSA PSA Maria Elena Busch, PSA PSA ms Green, Ben Jones,MACHINING DEPARTMENT SUPERVISOR MACHINING DEPARTMENT SUPERVISOR rw1 Roshan Duenas Dustin dpScooby Ken, DO cs11 Yazmin Harrison RN RN [id number] Brooke Solomon RN RN lew2 Ben Briones rn1 Nancy Christianson Corrections: (The following items were deleted from the chart) 10/10 20:54 20:53 Mental Health history: ms ms 10/11 11:20 11:19 Reassessment: Patient to and from bathroom to void.. kcs kcs Chart Complete MTDD
--- NOTE | 2016-10-13 18:43 | EDDOCDS ---
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 Disposition: 10/11/16 12:10 Hospitalization ordered by Ed Boyd for Inpatient Admission. Preliminary diagnosis is Major depressive disorder, recurrent, moderate. - Bed requested for Admit. - Status is Inpatient Admission. kcs - Condition is Stable. - Problem is new. - Symptoms are unchanged. Historical: - Allergies: no known allergies; - Home Meds: 1. promethazine-DM 6.25-15 mg/5 mL Oral syrp 5 mL as needed 2. albuterol sulfate 90 mcg/actuation inhalation HFAA 2 puffs as needed - PMHx: Asthma; - PSHx: none; - Social history: Smoking status: Patient uses tobacco products, light tobacco smoker. No barriers to communication noted, The patient speaks fluent Telugu. - Family history: Not pertinent. - : The pt / caregiver states he / she is not on anticoagulants. Home medication list is obtained from the patient. - Exposure Risk Screening:: None identified. Vital Signs: 10/10 18:26 BP 154 / 93; Pulse 74; Resp 18; Temp 97.2(O); Pulse Ox 96% on R/A; Weight 68.04 kg / mk4 150 lbs; Height 5 ft. 9 in. (175.26 cm); 20:23 BP 144 / 77; Pulse 70; Resp 16; Temp 97.9(TE); Pulse Ox 96% on R/A; Pain 0/10; rw1 10/11 05:26 BP 121 / 66; Pulse 65; Resp 18; Temp 96.8(T); Pulse Ox 96% on R/A; Pain 0/10; rw1 16:36 BP 129 / 67; Pulse 70; Resp 18; Temp 97.2(O); Pulse Ox 100% on R/A; dpm 17:36 BP 147 / 72; Pulse 62; Resp 20; Temp 98.2; Pulse Ox 99% on R/A; Pain 0/10; kcs 10/10 18:26 Body Mass Index 22.15 (68.04 kg, 175.26 cm) mk4 MDM: 10/10 18:39 Consult PFS/PSA/Fish Bailer ordered. br1 18:39 Consult PFS/PSA/Fish Bailer: Patient's case requires discussion with on-call br1 Psychiatrist ordered. 18:39 PSA/PFS to call Nursing Product Marketing Intern, to enter patient data on [place] Safe [place] if patient br1 involuntarily admitted or transferred for SI or HI ordered. 18:39 Confirm accurate psychiatric medication list and times of last dosage ordered. br1 18:39 Detain Pt Until Medically/PFS Cleared ordered. br1 18:40 Acetaminophen Level Ordered. EDMS 18:40 Basic Metabolic Profile Ordered. EDMS 18:40 Complete Blood Count Ordered. EDMS 18:40 Drug Eval Toxicology ED Only Ordered. EDMS 18:40 Ethyl Alcohol (ethanol) Ordered. EDMS 18:40 Liver Profile Ordered. EDMS 18:40 Salicylate Level Ordered. EDMS 18:40 Thyroid Stimulating Hormone Ordered. EDMS 18:40 Consult PFS/PSA/Fish Bailer complete. mk4 18:55 Consult PFS/PSA/Fish Bailer: Patient's case requires discussion with on-call 4 Psychiatrist complete. 18:55 PSA/PFS to call Nursing Product Marketing Intern, to enter [place] data [place] if patient mk4 involuntarily admitted or transferred for SI or HI complete. 19:17 Financial registration complete. zo 19:41 Acetaminophen Level Reviewed. cs11 19:41 Basic Metabolic Profile Reviewed. cs11 19:41 Drug Eval Toxicology ED Only Reviewed. cs11 19:41 Liver Profile Reviewed. cs11 19:41 Salicylate Level Reviewed. cs11 19:41 Thyroid Stimulating Hormone Reviewed. cs11 19:41 Complete Blood Count Reviewed. cs11 19:41 Ethyl Alcohol (ethanol) Reviewed. cs11 19:43 Consult PFS/PSA/Socail Worker: Cleared medically for eval ordered. cs11 19:51 Consult PFS/PSA/Socail Worker: Cleared medically for eval complete. ms 21:32 [id number] Payment Agreement was scanned into [employer] and attached to record. zo 10/11 04:35 REGULAR DIET PLASTIC STANLEY+DIET ordered. EDMS 11:46 REGULAR DIET PLASTIC STANLEY+DIET ordered. EDMS 16:35 REGULAR DIET PLASTIC STANLEY+DIET ordered. EDMS 16:49 Admit to IMHU: ordered. EDMS 16:50 [facility] Legal paperwork was scanned into [employer] and attached to record. jl 17:54 REGULAR DIET ordered. EDMS Signatures: Dispatcher [employer] EDMS Angeles Metzegr MD MD sd1 Jody Reeves RN RN kcs Kelly, Genaro, PSA PSA jl Stone, Maria Elena, PSA PSA ms Ben Trujillo,MANGLE CATCHER MANGLE CATCHER rw1 Roshan Duenas Brian, MD MD br1 Scooby Rodrigues DO DO cs11 Yazmin Harrison RN RN mk4 The chart was reviewed and I authenticate all verbal orders and agree with the evaluation and treatment provided.Attachments: 10/10 21:32 [facility] Payment Agreement zo Chart Complete MTDD
--- NOTE | 2016-10-13 18:43 | EDDOCDS ---
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 Disposition: 10/11/16 12:10 Hospitalization ordered by Ed Boyd for Inpatient Admission. Preliminary diagnosis is Major depressive disorder, recurrent, moderate. - Bed requested for Admit. - Status is Inpatient Admission. kcs - Condition is Stable. - Problem is new. - Symptoms are unchanged. Historical: - Allergies: no known allergies; - Home Meds: 1. promethazine-DM 6.25-15 mg/5 mL Oral syrp 5 mL as needed 2. albuterol sulfate 90 mcg/actuation inhalation HFAA 2 puffs as needed - PMHx: Asthma; - PSHx: none; - Social history: Smoking status: Patient uses tobacco products, light tobacco smoker. No barriers to communication noted, The patient speaks fluent Setswana. - Family history: Not pertinent. - : The pt / caregiver states he / she is not on anticoagulants. Home medication list is obtained from the patient. - Exposure Risk Screening:: None identified. Vital Signs: 10/10 18:26 BP 154 / 93; Pulse 74; Resp 18; Temp 97.2(O); Pulse Ox 96% on R/A; Weight 68.04 kg / mk4 150 lbs; Height 5 ft. 9 in. (175.26 cm); 20:23 BP 144 / 77; Pulse 70; Resp 16; Temp 97.9(TE); Pulse Ox 96% on R/A; Pain 0/10; rw1 10/11 05:26 BP 121 / 66; Pulse 65; Resp 18; Temp 96.8(T); Pulse Ox 96% on R/A; Pain 0/10; rw1 16:36 BP 129 / 67; Pulse 70; Resp 18; Temp 97.2(O); Pulse Ox 100% on R/A; dpm 17:36 BP 147 / 72; Pulse 62; Resp 20; Temp 98.2; Pulse Ox 99% on R/A; Pain 0/10; kcs 10/10 18:26 Body Mass Index 22.15 (68.04 kg, 175.26 cm) mk4 MDM: 10/10 18:39 Consult PFS/PSA/Coal Cager ordered. br1 18:39 Consult PFS/PSA/Coal Cager: Patient's case requires discussion with on-call br1 Psychiatrist ordered. 18:39 PSA/PFS to call Nursing Banquet Kitchen Supervisor, to enter [place] data [place] if patient br1 involuntarily admitted or transferred for SI or HI ordered. 18:39 Confirm accurate psychiatric medication list and times of last dosage ordered. br1 18:39 Detain Pt Until Medically/PFS Cleared ordered. br1 18:40 Acetaminophen Level Ordered. EDMS 18:40 Basic Metabolic Profile Ordered. EDMS 18:40 Complete Blood Count Ordered. EDMS 18:40 Drug Eval Toxicology ED Only Ordered. EDMS 18:40 Ethyl Alcohol (ethanol) Ordered. EDMS 18:40 Liver Profile Ordered. EDMS 18:40 Salicylate Level Ordered. EDMS 18:40 Thyroid Stimulating Hormone Ordered. EDMS 18:40 Consult PFS/PSA/Coal Cager complete. mk4 18:55 Consult PFS/PSA/Coal Cager: Patient's case requires discussion with on-call 4 Psychiatrist complete. 18:55 PSA/PFS to call Nursing Banquet Kitchen Supervisor, to enter [place] data [place] if patient mk4 involuntarily admitted or transferred for SI or HI complete. 19:17 Financial registration complete. zo 19:41 Acetaminophen Level Reviewed. cs11 19:41 Basic Metabolic Profile Reviewed. cs11 19:41 Drug Eval Toxicology ED Only Reviewed. cs11 19:41 Liver Profile Reviewed. cs11 19:41 Salicylate Level Reviewed. cs11 19:41 Thyroid Stimulating Hormone Reviewed. cs11 19:41 Complete Blood Count Reviewed. cs11 19:41 Ethyl Alcohol (ethanol) Reviewed. cs11 19:43 Consult PFS/PSA/Socail Worker: Cleared medically for eval ordered. cs11 19:51 Consult PFS/PSA/Socail Worker: Cleared medically for eval complete. ms 21:32 [facility] was scanned into [employer] and attached to record. zo 10/11 04:35 REGULAR DIET PLASTIC STANLEY+DIET ordered. EDMS 11:46 REGULAR DIET PLASTIC STANLEY+DIET ordered. EDMS 16:35 REGULAR DIET PLASTIC STANLEY+DIET ordered. EDMS 16:49 Admit to IMHU: ordered. EDMS 16:50 [facility] Legal paperwork was scanned into [employer] and attached to record. jl 17:54 REGULAR DIET ordered. EDMS Signatures: Dispatcher [employer] EDMS Angeles Metzger MD MD sd1 Jody Reeves RN RN kcs Kelly, Genaro, PSA PSA jl Stone, Maria Elena, PSA PSA ms Ben Trujillo,VACUUM CLEANER OPERATOR VACUUM CLEANER OPERATOR rw1 Roshan Duenas Brian, MD MD br1 Scooby Rodrigues DO DO cs11 Yazmin Harrison RN RN mk4 The chart was reviewed and I authenticate all verbal orders and agree with the evaluation and treatment provided.Attachments: 10/10 21:32 [facility] Payment Agreement zo Chart Complete MTDD
--- NOTE | 2016-10-13 18:58 | IPNPDOC ---
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 Band Cutter met with patient today to assess treatment progress on inpatient unit. Patient continues to deny need for psychotropic medications. Patient is observed to be visible on unit, engaging with peers, is superficially bright, superficially compliant, and continues to minimize symptoms and events which led to current hospitalization. Patient denies symptoms of anxiety and depression, denies suicidal and homicidal ideation, denies audiovisual hallucinations, denies urge to engage in self- injurious behavior. Patient remains evasive and engages poorly for assessment. Patient indicates he has been attending groups, denies challenges to sleep or concentration or energy level, indicates appetite is stable. Patient states mother has arrived from [place] and informs ghost writer today he may discharge to home with her next week. Patient denies physical pain and presents with no signs of acute distress at time of interaction. VITAL SIGNS: See below NEW TEST RESULTS: No new results. Labs on admission indicated low anion gap, AST , TSH. Patient indicates he has asthma, denies history of seizure or head injury. UDS on admission positive for cannabinoids 10/13/16 EKG SINUS BRADYCARDIA. 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 Speech: Is of normal rate, rhythm, volume, coherent, spontaneous Language skills are intact. Thought processes: Clear, goal-directed. Thought content: Rational, logical. Abstract reasoning, and computation: Requires further evaluation. Description of associations: Intact. Description of abnormal or psychotic thoughts: denies hallucinations, delusions , preoccupation with violence, homicidal or suicidal ideation, and obsessions]. Judgment: Poor. Insight: Poor. Orientation to time, place and person. Recent and remote memory: Appears intact but requires further assessment Attention span and concentration: Appears within normal limits. Language: Normal. Fund of knowledge: Appears adequate. Mood: "I'm fine, much better today, I really don't need to be here." Appears anxious, depressed, no tearfulness today Affect: Constricted, poor eye contact DIAGNOSES: Major depressive disorder, recurrent, moderate, polysubstance use disorder ASSESSMENT: Patient is 21-year-old male who was admitted after being sent by [employer] [facility] counselor for evaluation after expressing suicidal ideation with planned overdose on multiple substances. Patient remains evasive, is superficially compliant, minimizes symptoms, and minimizes gravity of behavior and events which led to current hospitalization. Patient indicates mother has arrived in [place] and will be visiting patient on unit, has attended 2 needs of his dog. Patient has been offered a letter for work so that he may verify that he is currently are dissipating in inpatient treatment. Patient continues to deny need for psychotropic medications, remains aware he has PRN sleep medication available to him if needed. Patient has been encouraged to participate in unit programming and to consider taking psychotropic medications which may reduce symptoms of anxiety and depression and suicidal ideation; patient agrees to consider. Patient denies suicidal and homicidal ideation and is able to verbalize how to access supportive services on the unit if needed. Will continue to monitor patient's adjustment to unit, need for medications, resolution of suicidal ideation, and discharge readiness. Patient indicates he is currently working on a plan for discharge with his mother which would include relocating to home with his mother and [place] and participating in outpatient psychotherapy. Patient states he may be receptive to psychotropic medication eval in outpatient environment. MANAGEMENT PLAN: Encourage patient to consider taking psychotropic medication to address symptoms of anxiety, depression and suicidal thinking Maintain safety precautions Patient to attend groups and participate in unit programming to develop coping strategies Engage patient in discharge planning process and arrange meeting with support system to ensure safe discharge planning when appropriate Patient to follow up with PCM upon discharge TIME SPENT: 35 Vital Signs Vital Signs Date Time Temp Pulse Resp B/P Pulse Ox O2 Delivery O2 Flow Rate FiO2 10/13/16 06:30 96.0 62 20 125/82 Laboratory Data 24H Labs Laboratory Tests 2 10/13/16 06:57: Free Thyroxine 1.04, Thyroid Stimulating Hormone (TSH) 0.907 Current Medications Current Medications Acetaminophen (Tylenol Tab) 650 mg Q6HP PRN PO HEADACHE or DISCOMFORT; Start at 19:00; Stop 11/10/16 at 18:59 Al Hydrox/Mg Hydrox/Simethicone (Mylanta) 30 ml Q4HP PRN PO HEARTBURN/ INDIGESTION; Start 10/11/16 at 19:00; Stop 11/10/16 at 18:59 Albuterol Sulfate (Proventil, Ventolin Hfa) 2 puff Q4HP PRN INH SHORTNESS OF BREATH; Start 10/13/16 at 11:15; Stop 11/12/16 at 11:14 Albuterol Sulfate (Proventil, Ventolin Hfa) 2 puff QIDP PRN INH Shortness of breath Last administered on 10/13/16 06:23; Start 10/11/16 at 19:00; Stop at 11:12; Status DC Home Med (Med Rec Complete!) ASDIRECTED XX ; Start 10/11/16 at 13:15; Stop at 13:15; Status DC Lorazepam (Ativan) 0.5 mg Q4HP PRN PO ANXIETY/AGITATION; Start 10/11/16 at 19: 00; Stop 10/18/16 at 18:59 Magnesium Hydroxide (Milk Of Magnesia) 30 ml DAILYPRN PRN PO CONSTIPATION; Start 10/11/16 at 19:00; Stop 11/10/16 at 18:59 Nicotine (Nicoderm Cq 7 Mg) 1 patch DAILY TD Last administered on 10/13/16 09: 33; Start 10/13/16 at 09:00; Stop 11/12/16 at 08:59 Trazodone HCl (Desyrel) 50 mg QHSP PRN PO INSOMNIA; Start 10/11/16 at 19:00; Stop 11/10/16 at 18:59 Allergies Coded Allergies: No Known Allergies (Unverified , 10/11/16) Sameera Avilez Oct 13, 2016 18:58
[2016-10-14 07:15] VITALS: BP 138/73
[2016-10-14] MEDS: NICOTINE 7 MG/24 HR TRANSDERMAL TD SCH (09:07)
[2016-10-14 18:00] VITALS: BP 146/86
[2016-10-15 06:44] VITALS: BP 131/60
[2016-10-15] MEDS: NICOTINE 7 MG/24 HR TRANSDERMAL TD SCH ×2 (10:00→13:07)
[2016-10-15 18:00] VITALS: BP 142/78
[2016-10-16 06:51] VITALS: BP 118/78
[2016-10-16] MEDS: NICOTINE 7 MG/24 HR TRANSDERMAL TD SCH (09:03)
--- NOTE | 2016-10-16 09:22 | IPN ---
DATE: 10/15/2016 SUBJECTIVE: "I'm feeling better." OBJECTIVE: The patient is improving slowly. He is denying suicidal ideation. The patient continues to have sad restricted facial expression and psychomotor retardation. No evidence of psychotic symptoms. No auditory or visual hallucinations or delusions. MENTAL STATUS EXAMINATION: The patient is dressed in [facility]. The patient is cooperative during the examination. He has fair eye contact. Speech is slow and monotone. Mood is depressed. Affect is congruent with mood. No delusions or hallucinations. Short and long-term memory is fair. The patient is fully oriented. Associations are intact. Thinking is logical. Thought content is appropriate. The patient is able to contract for safety. He denies suicidal or homicidal ideation. Insight and judgment is limited. ASSESSMENT: 1. Depression. 2. Suicidal ideation. PLAN: 1. Continue with trazodone as needed for insomnia. 2. Continue close observation.
[2016-10-16 18:00] VITALS: BP 134/83
[2016-10-17 06:27] VITALS: BP 104/55
[2016-10-17] MEDS: NICOTINE 7 MG/24 HR TRANSDERMAL TD SCH (08:19)
[2016-10-17 18:00] VITALS: BP 140/79
[2016-10-18 06:27] VITALS: BP 120/56
[2016-10-18] MEDS ORDERED: NICO7PA TD (08:16)
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
[2016-10-18] MEDS: NICOTINE 7 MG/24 HR TRANSDERMAL TD SCH ×2 (09:00→09:30)
--- NOTE | 2016-10-18 09:40 | IPN ---
DATE: 10/17/2016 SUBJECTIVE: "I feel much better". OBJECTIVE: Patient is significantly improved. The patient denies any feelings of depression or suicidal ideation. No auditory or visual hallucinations or delusions. The patient is feeling ready to be discharged and making statements such as "I am supposed to go tomorrow". MENTAL STATUS EXAMINATION: The patient is dressed in [facility]. The patient is calm and cooperative. She has good eye contact. Speech is normal in rate, volume, articulation, is coherent and spontaneous. Mood is slightly depressed, but significantly improved. Affect is congruent with mood. No delusions or hallucinations. Short and skilled nursing memory are fair. Patient is fully oriented. Associations are intact. Thinking is logical. Thought content is appropriate. The patient denies suicidal or homicidal ideation. Insight and judgment is fair. ASSESSMENT: 1. Depression. 2. Suicidal ideation. PLAN: 1. Continue with trazodone as needed for insomnia. 2. Discharge process has been started.
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
== END 2016-10-18 18:32 | disposition home or self-care (01) | DRG 885 ==
LOC: M ED 18:20 → M ED INP 10-11 16:44 → M PSY 10-11 17:55
PROVIDERS: ADMIT Psychiatry & Neurology Psychiatry; ATTEND Psychiatry & Neurology Psychiatry
DX: F33.1 Major depressive disorder, recurrent, moderate (principal); F12.90 Cannabis use, unspecified, uncomplicated; F17.200 Nicotine dependence, unspecified, uncomplicated; J45.909 Unspecified asthma, uncomplicated